=== PATIENT | male | born 1950 | race Caucasian/White ===

== ENCOUNTER 2018-06-24 15:27 | Inpatient (IN) | payer MEDICARE, OTHER, BC | END 2018-06-26 16:30 | disposition home or self-care (01) | LOC: ER 15:27 → ED HOLD 22:20 → ORTHO 4S 23:15 | DX: L03.115 Cellulitis of right lower limb (principal); G70.01 Myasthenia gravis with (acute) exacerbation; I50.32 Chronic diastolic (congestive) heart failure; I48.91 Unspecified atrial fibrillation ==

== ENCOUNTER 2019-02-08 07:48 | Day surgery (SDC) | payer MEDICARE, OTHER ==
[~2019-02-08] VITALS: Ht 180.3 cm; Wt 176.6 kg
[~2019-02-08 07:48] MED LIST: ALLO100T PO; APIX5TAB3 PO; CARV-49 PO; CEPH500C5 PO; FURO-149 PO; MYCO250C PO; POT25TAB5 PO; QUIN20TA18 PO
[2019-02-08 08:30] VITALS: BP 107/74
[2019-02-08] MEDS ORDERED: ALLO100T PO (08:33)
[2019-02-08] MEDS ORDERED: PRED5TAB PO (08:33)
[2019-02-08] MEDS ORDERED: NITR0.4T51 SL (08:33)
[2019-02-08] MEDS ORDERED: CARV12.5 PO (08:33)
[2019-02-08] MEDS ORDERED: TORS100T15 PO (08:33)
[2019-02-08] MEDS ORDERED: normal saline 1000ml 1,000 ML IV SCH (09:15)
[2019-02-08] MEDS ORDERED: fentaNYL/PF 50MCG/1 ML 2ML syringe IV ONE (09:15)
[2019-02-08] MEDS ORDERED: MIDAZolam 5mg/ml 2ml vial IV ONE (09:15)
--- NOTE | 2019-02-08 09:30 | NUR ---
Dr. Trejo in to do procedure. OLENA cancelled and Heart Echo done instead. Pt to be discharged post echo study. Addendum: 02/08/19 at 1455 by Ander Portillo RN Amended: Links added.
== END 2019-02-08 10:40 | disposition home or self-care (01) ==
LOC: SSTAY O 07:48 → EDSTATUS 09:30 → SSTAY O 10:40
PROVIDERS: ATTEND Internal Medicine Cardiovascular Disease
DX: R06.02 Shortness of breath (principal); I42.9 Cardiomyopathy, unspecified; I34.0 Nonrheumatic mitral (valve) insufficiency; I50.9 Heart failure, unspecified; I27.20 Pulmonary hypertension, unspecified; G47.33 Obstructive sleep apnea (adult) (pediatric); I48.91 Unspecified atrial fibrillation
CPT/HCPCS: 93306; J2250; J3010; J7030

== ENCOUNTER 2020-02-17 09:00 | Day surgery (SDC) | payer MEDICARE, OTHER ==
[~2020-02-17 09:00] MED LIST changes: -CARV-49 PO; +CARV12.5 PO; -CEPH500C5 PO; -FURO-149 PO; +NITR0.4T51 SL; +PRED5TAB PO; +TORS100T15 PO
[2020-02-17] MEDS ORDERED: LIDOcaine 2% 5ml jelly ONE (09:57)
== END 2020-02-17 11:00 | disposition home or self-care (01) ==
LOC: WOUND CARE 09:00
PROVIDERS: ATTEND Nurse Practitioner Family
DX: T81.89XD Other complications of procedures, not elsewhere classified, subsequent encounter (principal); E11.622 Type 2 diabetes mellitus with other skin ulcer; I83.228 Varicose veins of left lower extremity with both ulcer of other part of lower extremity and inflammation; L97.821 Non-pressure chronic ulcer of other part of left lower leg limited to breakdown of skin; I83.012 Varicose veins of right lower extremity with ulcer of calf; L97.211 Non-pressure chronic ulcer of right calf limited to breakdown of skin; E11.65 Type 2 diabetes mellitus with hyperglycemia; M10.9 Gout, unspecified; I10 Essential (primary) hypertension; B35.1 Tinea unguium; Z98.49 Cataract extraction status, unspecified eye; Y83.8 Other surgical procedures as the cause of abnormal reaction of the patient, or of later complication, without mention of misadventure at the time of the procedure
CPT/HCPCS: 36416; 87070; 87075; 87077; 87102; 87186; 97597

== ENCOUNTER 2020-02-20 09:45 | Day surgery (SDC) | payer MEDICARE, OTHER ==
[2020-02-20] MEDS ORDERED: LIDOcaine 2% 5ml jelly ONE (12:08)
== END 2020-02-20 13:12 | disposition home or self-care (01) ==
LOC: WOUND CARE 09:45
PROVIDERS: ATTEND Nurse Practitioner
DX: T81.89XD Other complications of procedures, not elsewhere classified, subsequent encounter (principal); E11.622 Type 2 diabetes mellitus with other skin ulcer; I83.12 Varicose veins of left lower extremity with inflammation; L97.821 Non-pressure chronic ulcer of other part of left lower leg limited to breakdown of skin; E11.65 Type 2 diabetes mellitus with hyperglycemia; M10.9 Gout, unspecified; I10 Essential (primary) hypertension; B35.1 Tinea unguium; Z98.49 Cataract extraction status, unspecified eye; Y83.8 Other surgical procedures as the cause of abnormal reaction of the patient, or of later complication, without mention of misadventure at the time of the procedure
CPT/HCPCS: 93970; 97597

== ENCOUNTER 2020-02-26 08:00 | Day surgery (SDC) | payer MEDICARE, OTHER ==
[2020-02-26] MEDS ORDERED: LIDOcaine 2% 5ml jelly ONE (08:44)
== END 2020-02-26 09:37 | disposition home or self-care (01) ==
LOC: WOUND CARE 08:00
PROVIDERS: ATTEND Nurse Practitioner
DX: T81.89XD Other complications of procedures, not elsewhere classified, subsequent encounter (principal); E11.622 Type 2 diabetes mellitus with other skin ulcer; I83.12 Varicose veins of left lower extremity with inflammation; L97.821 Non-pressure chronic ulcer of other part of left lower leg limited to breakdown of skin; E11.65 Type 2 diabetes mellitus with hyperglycemia; M10.9 Gout, unspecified; I10 Essential (primary) hypertension; B35.1 Tinea unguium; Z98.49 Cataract extraction status, unspecified eye; Y83.8 Other surgical procedures as the cause of abnormal reaction of the patient, or of later complication, without mention of misadventure at the time of the procedure
CPT/HCPCS: 97597

== ENCOUNTER 2020-03-05 07:45 | Day surgery (SDC) | payer MEDICARE, OTHER ==
[2020-03-05] MEDS ORDERED: LIDOcaine 2% 5ml jelly ONE (08:24)
== END 2020-03-05 08:59 | disposition home or self-care (01) ==
LOC: WOUND CARE 07:45
PROVIDERS: ATTEND Nurse Practitioner
DX: T81.89XD Other complications of procedures, not elsewhere classified, subsequent encounter (principal); E11.622 Type 2 diabetes mellitus with other skin ulcer; I83.228 Varicose veins of left lower extremity with both ulcer of other part of lower extremity and inflammation; L97.821 Non-pressure chronic ulcer of other part of left lower leg limited to breakdown of skin; I83.012 Varicose veins of right lower extremity with ulcer of calf; L97.211 Non-pressure chronic ulcer of right calf limited to breakdown of skin; E11.65 Type 2 diabetes mellitus with hyperglycemia; M10.9 Gout, unspecified; I10 Essential (primary) hypertension; B35.1 Tinea unguium; Z98.49 Cataract extraction status, unspecified eye; Y83.8 Other surgical procedures as the cause of abnormal reaction of the patient, or of later complication, without mention of misadventure at the time of the procedure
CPT/HCPCS: 97597

== ENCOUNTER 2020-03-12 07:52 | Outpatient (CLI) | payer MEDICARE, OTHER ==
[2020-03-12] MEDS ORDERED: LIDOcaine 2% 5ml jelly ONE (08:33)
== END 2020-03-12 08:45 | disposition home or self-care (01) ==
LOC: WOUND CARE 07:52 → EDSTATUS 08:00 → WOUND CARE 08:45
PROVIDERS: ATTEND Nurse Practitioner
DX: T81.89XD Other complications of procedures, not elsewhere classified, subsequent encounter (principal); E11.622 Type 2 diabetes mellitus with other skin ulcer; I83.228 Varicose veins of left lower extremity with both ulcer of other part of lower extremity and inflammation; L97.821 Non-pressure chronic ulcer of other part of left lower leg limited to breakdown of skin; I83.012 Varicose veins of right lower extremity with ulcer of calf; L97.211 Non-pressure chronic ulcer of right calf limited to breakdown of skin; E11.65 Type 2 diabetes mellitus with hyperglycemia; M10.9 Gout, unspecified; I10 Essential (primary) hypertension; B35.1 Tinea unguium; Z98.49 Cataract extraction status, unspecified eye; Y83.8 Other surgical procedures as the cause of abnormal reaction of the patient, or of later complication, without mention of misadventure at the time of the procedure
CPT/HCPCS: 97597

== ENCOUNTER 2020-03-19 07:56 | Outpatient (CLI) | payer MEDICARE, OTHER ==
[2020-03-19] MEDS ORDERED: LIDOcaine 2% 5ml jelly ONE (08:18)
[2020-03-19] MEDS ORDERED: LIDOcaine 1%/PF 5ML 10 MG/ML VIAL ONE (08:51)
== END 2020-03-19 23:59 | disposition home or self-care (01) ==
LOC: WOUND CARE 07:56 → EDSTATUS 08:20 → WOUND CARE 23:59
PROVIDERS: ATTEND Nurse Practitioner
DX: T81.89XD Other complications of procedures, not elsewhere classified, subsequent encounter (principal); E11.622 Type 2 diabetes mellitus with other skin ulcer; I83.228 Varicose veins of left lower extremity with both ulcer of other part of lower extremity and inflammation; L97.821 Non-pressure chronic ulcer of other part of left lower leg limited to breakdown of skin; I83.012 Varicose veins of right lower extremity with ulcer of calf; L97.212 Non-pressure chronic ulcer of right calf with fat layer exposed; E66.01 Morbid (severe) obesity due to excess calories; E11.65 Type 2 diabetes mellitus with hyperglycemia; M10.9 Gout, unspecified; I10 Essential (primary) hypertension; B35.1 Tinea unguium; Z98.49 Cataract extraction status, unspecified eye; Z68.43 Body mass index [BMI] 50.0-59.9, adult; Y83.8 Other surgical procedures as the cause of abnormal reaction of the patient, or of later complication, without mention of misadventure at the time of the procedure
CPT/HCPCS: 11042

== ENCOUNTER 2020-03-26 07:33 | Outpatient (CLI) | payer MEDICARE, OTHER ==
[2020-03-26] MEDS ORDERED: LIDOcaine 2% 5ml jelly ONE (08:17)
[2020-03-26] MEDS ORDERED: LIDOcaine 1%/PF 5ML 10 MG/ML VIAL ONE (08:45)
== END 2020-03-26 23:59 | disposition home or self-care (01) ==
LOC: WOUND CARE 07:33
PROVIDERS: ATTEND Nurse Practitioner
DX: T81.89XD Other complications of procedures, not elsewhere classified, subsequent encounter (principal); E11.622 Type 2 diabetes mellitus with other skin ulcer; I83.228 Varicose veins of left lower extremity with both ulcer of other part of lower extremity and inflammation; L97.822 Non-pressure chronic ulcer of other part of left lower leg with fat layer exposed; I83.012 Varicose veins of right lower extremity with ulcer of calf; L97.212 Non-pressure chronic ulcer of right calf with fat layer exposed; E66.01 Morbid (severe) obesity due to excess calories; E11.65 Type 2 diabetes mellitus with hyperglycemia; M10.9 Gout, unspecified; I10 Essential (primary) hypertension; B35.1 Tinea unguium; Z98.49 Cataract extraction status, unspecified eye; Z85.828 Personal history of other malignant neoplasm of skin; Z68.43 Body mass index [BMI] 50.0-59.9, adult; Y83.8 Other surgical procedures as the cause of abnormal reaction of the patient, or of later complication, without mention of misadventure at the time of the procedure
CPT/HCPCS: 11042

== ENCOUNTER 2020-04-06 08:45 | Outpatient (CLI) | payer MEDICARE, OTHER ==
[2020-04-06] MEDS ORDERED: LIDOcaine 2% 5ml jelly ONE (09:03)
== END 2020-04-06 23:59 | disposition home or self-care (01) ==
LOC: WOUND CARE 08:45
PROVIDERS: ATTEND Nurse Practitioner
DX: T81.89XD Other complications of procedures, not elsewhere classified, subsequent encounter (principal); E11.622 Type 2 diabetes mellitus with other skin ulcer; I83.228 Varicose veins of left lower extremity with both ulcer of other part of lower extremity and inflammation; L97.822 Non-pressure chronic ulcer of other part of left lower leg with fat layer exposed; I83.012 Varicose veins of right lower extremity with ulcer of calf; L97.211 Non-pressure chronic ulcer of right calf limited to breakdown of skin; E66.01 Morbid (severe) obesity due to excess calories; E11.65 Type 2 diabetes mellitus with hyperglycemia; M10.9 Gout, unspecified; I10 Essential (primary) hypertension; B35.1 Tinea unguium; Z98.49 Cataract extraction status, unspecified eye; Z85.828 Personal history of other malignant neoplasm of skin; Z68.43 Body mass index [BMI] 50.0-59.9, adult; Y83.8 Other surgical procedures as the cause of abnormal reaction of the patient, or of later complication, without mention of misadventure at the time of the procedure; E11.36 Type 2 diabetes mellitus with diabetic cataract
CPT/HCPCS: 97597

== ENCOUNTER 2020-04-13 08:26 | Outpatient (CLI) | payer MEDICARE, OTHER ==
[2020-04-13] MEDS ORDERED: LIDOcaine 2% 5ml jelly ONE (09:11)
== END 2020-04-13 23:59 | disposition home or self-care (01) ==
LOC: WOUND CARE 08:26 → EDSTATUS 09:00 → WOUND CARE 23:59
PROVIDERS: ATTEND Nurse Practitioner Family
DX: T81.89XD Other complications of procedures, not elsewhere classified, subsequent encounter (principal); E11.622 Type 2 diabetes mellitus with other skin ulcer; I83.228 Varicose veins of left lower extremity with both ulcer of other part of lower extremity and inflammation; L97.821 Non-pressure chronic ulcer of other part of left lower leg limited to breakdown of skin; I83.012 Varicose veins of right lower extremity with ulcer of calf; L97.211 Non-pressure chronic ulcer of right calf limited to breakdown of skin; E66.01 Morbid (severe) obesity due to excess calories; E11.65 Type 2 diabetes mellitus with hyperglycemia; E11.36 Type 2 diabetes mellitus with diabetic cataract; M10.9 Gout, unspecified; I10 Essential (primary) hypertension; B35.1 Tinea unguium; Z98.49 Cataract extraction status, unspecified eye; Z85.828 Personal history of other malignant neoplasm of skin; Z68.43 Body mass index [BMI] 50.0-59.9, adult; Y83.8 Other surgical procedures as the cause of abnormal reaction of the patient, or of later complication, without mention of misadventure at the time of the procedure
CPT/HCPCS: 97597

== ENCOUNTER 2020-04-20 08:55 | Outpatient (CLI) | payer MEDICARE, OTHER ==
[2020-04-20] MEDS ORDERED: LIDOcaine 2% 5ml jelly ONE (09:32)
== END 2020-04-20 23:59 | disposition home or self-care (01) ==
LOC: WOUND CARE 08:55
PROVIDERS: ATTEND Nurse Practitioner Family
DX: T81.89XD Other complications of procedures, not elsewhere classified, subsequent encounter (principal); E11.622 Type 2 diabetes mellitus with other skin ulcer; I83.228 Varicose veins of left lower extremity with both ulcer of other part of lower extremity and inflammation; L97.821 Non-pressure chronic ulcer of other part of left lower leg limited to breakdown of skin; I83.012 Varicose veins of right lower extremity with ulcer of calf; L97.211 Non-pressure chronic ulcer of right calf limited to breakdown of skin; E66.01 Morbid (severe) obesity due to excess calories; E11.65 Type 2 diabetes mellitus with hyperglycemia; E11.36 Type 2 diabetes mellitus with diabetic cataract; M10.9 Gout, unspecified; I10 Essential (primary) hypertension; B35.1 Tinea unguium; Z98.49 Cataract extraction status, unspecified eye; Z85.828 Personal history of other malignant neoplasm of skin; Z68.43 Body mass index [BMI] 50.0-59.9, adult; Y83.8 Other surgical procedures as the cause of abnormal reaction of the patient, or of later complication, without mention of misadventure at the time of the procedure
CPT/HCPCS: 97597

== ENCOUNTER 2020-04-27 08:47 | Outpatient (CLI) | payer MEDICARE, OTHER ==
[2020-04-27] MEDS ORDERED: LIDOcaine 2% 5ml jelly ONE (09:18)
== END 2020-04-27 23:59 | disposition home or self-care (01) ==
LOC: WOUND CARE 08:47 → EDSTATUS 09:00 → WOUND CARE 23:59
PROVIDERS: ATTEND Nurse Practitioner Family
DX: T81.89XD Other complications of procedures, not elsewhere classified, subsequent encounter (principal); E11.622 Type 2 diabetes mellitus with other skin ulcer; I83.228 Varicose veins of left lower extremity with both ulcer of other part of lower extremity and inflammation; L97.821 Non-pressure chronic ulcer of other part of left lower leg limited to breakdown of skin; I83.012 Varicose veins of right lower extremity with ulcer of calf; L97.211 Non-pressure chronic ulcer of right calf limited to breakdown of skin; E66.01 Morbid (severe) obesity due to excess calories; E11.65 Type 2 diabetes mellitus with hyperglycemia; E11.36 Type 2 diabetes mellitus with diabetic cataract; M10.9 Gout, unspecified; I10 Essential (primary) hypertension; B35.1 Tinea unguium; Z98.49 Cataract extraction status, unspecified eye; Z85.828 Personal history of other malignant neoplasm of skin; Z68.43 Body mass index [BMI] 50.0-59.9, adult; Y83.8 Other surgical procedures as the cause of abnormal reaction of the patient, or of later complication, without mention of misadventure at the time of the procedure
CPT/HCPCS: 97597

== ENCOUNTER 2020-05-04 08:57 | Outpatient (CLI) | payer MEDICARE, OTHER ==
[2020-05-04] MEDS ORDERED: LIDOcaine 2% 5ml jelly ONE (09:26)
== END 2020-05-04 23:59 | disposition home or self-care (01) ==
LOC: WOUND CARE 08:57
PROVIDERS: ATTEND Nurse Practitioner Family
DX: T81.89XD Other complications of procedures, not elsewhere classified, subsequent encounter (principal); E11.622 Type 2 diabetes mellitus with other skin ulcer; I83.228 Varicose veins of left lower extremity with both ulcer of other part of lower extremity and inflammation; L97.821 Non-pressure chronic ulcer of other part of left lower leg limited to breakdown of skin; I83.012 Varicose veins of right lower extremity with ulcer of calf; L97.211 Non-pressure chronic ulcer of right calf limited to breakdown of skin; E66.01 Morbid (severe) obesity due to excess calories; E11.65 Type 2 diabetes mellitus with hyperglycemia; E11.36 Type 2 diabetes mellitus with diabetic cataract; M10.9 Gout, unspecified; I10 Essential (primary) hypertension; B35.1 Tinea unguium; Z98.49 Cataract extraction status, unspecified eye; Z85.828 Personal history of other malignant neoplasm of skin; Z68.43 Body mass index [BMI] 50.0-59.9, adult; Y83.8 Other surgical procedures as the cause of abnormal reaction of the patient, or of later complication, without mention of misadventure at the time of the procedure
CPT/HCPCS: 97597

== ENCOUNTER 2020-05-13 08:38 | Outpatient (CLI) | payer MEDICARE, OTHER ==
[2020-05-13] MEDS ORDERED: LIDOcaine 2% 5ml jelly ONE (09:02)
== END 2020-05-13 23:59 | disposition home or self-care (01) ==
LOC: WOUND CARE 08:38
PROVIDERS: ATTEND Nurse Practitioner
DX: T81.89XD Other complications of procedures, not elsewhere classified, subsequent encounter (principal); E11.622 Type 2 diabetes mellitus with other skin ulcer; I83.228 Varicose veins of left lower extremity with both ulcer of other part of lower extremity and inflammation; L97.821 Non-pressure chronic ulcer of other part of left lower leg limited to breakdown of skin; I83.012 Varicose veins of right lower extremity with ulcer of calf; L97.211 Non-pressure chronic ulcer of right calf limited to breakdown of skin; E66.01 Morbid (severe) obesity due to excess calories; E11.65 Type 2 diabetes mellitus with hyperglycemia; E11.36 Type 2 diabetes mellitus with diabetic cataract; M10.9 Gout, unspecified; I10 Essential (primary) hypertension; B35.1 Tinea unguium; Z98.49 Cataract extraction status, unspecified eye; Z85.828 Personal history of other malignant neoplasm of skin; Z68.43 Body mass index [BMI] 50.0-59.9, adult; Y83.8 Other surgical procedures as the cause of abnormal reaction of the patient, or of later complication, without mention of misadventure at the time of the procedure
CPT/HCPCS: 97597

== ENCOUNTER 2020-05-20 08:40 | Outpatient (CLI) | payer MEDICARE, OTHER | END 2020-05-20 23:59 | disposition home or self-care (01) | LOC: WOUND CARE 08:40 | PROVIDERS: ATTEND Nurse Practitioner | DX: T81.89XD Other complications of procedures, not elsewhere classified, subsequent encounter (principal); E11.622 Type 2 diabetes mellitus with other skin ulcer; I83.228 Varicose veins of left lower extremity with both ulcer of other part of lower extremity and inflammation; L97.821 Non-pressure chronic ulcer of other part of left lower leg limited to breakdown of skin; I83.012 Varicose veins of right lower extremity with ulcer of calf; L97.211 Non-pressure chronic ulcer of right calf limited to breakdown of skin; E66.01 Morbid (severe) obesity due to excess calories; E11.65 Type 2 diabetes mellitus with hyperglycemia; E11.36 Type 2 diabetes mellitus with diabetic cataract; M10.9 Gout, unspecified; I10 Essential (primary) hypertension; B35.1 Tinea unguium; Z98.49 Cataract extraction status, unspecified eye; Z85.828 Personal history of other malignant neoplasm of skin; Z68.43 Body mass index [BMI] 50.0-59.9, adult; Y83.8 Other surgical procedures as the cause of abnormal reaction of the patient, or of later complication, without mention of misadventure at the time of the procedure | CPT/HCPCS: G0463 ==

== ENCOUNTER 2020-07-27 07:19 | Day surgery (SDC) | payer MEDICARE ==
[2020-07-27] VITALS (13 sets, daily range): BP systolic 82–140; BP diastolic 35–71
[~2020-07-27] VITALS: Ht 180.3 cm; Wt 176.1 kg
[2020-07-27] MEDS ORDERED: HYDR25TA5 PO (08:00)
[2020-07-27] MEDS ORDERED: MV-M1TAB32 (08:00)
[2020-07-27] MEDS ORDERED: normal saline 1000ml 1,000 ML IV SCH (08:10)
[2020-07-27] MEDS ORDERED: glycopyrrolate 0.2mg/ml inj IV ONE (08:10)
[2020-07-27] MEDS ORDERED: MIDAZolam 1mg/ml 10ml vial IV ONE (08:10)
[2020-07-27] MEDS ORDERED: fentaNYL/PF 50MCG/1 ML 2ML syringe IV ONE (08:10)
[2020-07-27 08:34] LABS: BASOPHILS # (AUTO) 0.1 X10'3 (0-0.2); BASOPHILS % (AUTO) 0.9 % (0-1); EOSINOPHILS # (AUTO) 0.4 X10'3 (0-0.9); EOSINOPHILS % (AUTO) 4.7 % (0-6); HEMATOCRIT 42.1 % (42.0-52.0); HEMOGLOBIN 13.8 g/dl (14.0-17.9); LYMPHOCYTES % (AUTO) 23.5 % (21-51); MEAN CORPUSCULAR HEMOGLOBIN 30.5 PG (27.0-31.0); MEAN CORPUSCULAR HGB CONC 32.8 g/dL (33.0-36.5); MEAN PLATELET VOLUME 11.2 FL (7.4-10.4); MONOCYTES # (AUTO) 0.8 X10'3 (0-0.9); MONOCYTES % (AUTO) 9.7 % (2-12); NEUTROPHILS # (AUTO) 5.2 X10'3 (1.8-7.7); NEUTROPHILS % (AUTO) 61.2 % (42-75); PLATELET COUNT 206 X10'3 (140-440); RED BLOOD COUNT 4.53 X10'6 (4.70-6.10); RED CELL DISTRIBUTION WIDTH 15.7 % (11.5-14.5); WHITE BLOOD COUNT 8.5 X10'3 (4.5-11.0)
[2020-07-27 08:40] LABS: ALBUMIN 3.6 G/DL (3.4-5.0); ANION GAP 9 (8-16); BLOOD UREA NITROGEN 31 MG/DL (7-18); BUN/CREATININE RATIO 22.5 (5.4-32.0); CALCIUM 9.4 MG/DL (8.5-10.1); CHLORIDE 103 MMOL/L (99-107); CREATININE 1.38 MG/DL (0.60-1.10); GLUCOSE 95 MG/DL (70-104); MAGNESIUM 2.5 MG/DL (1.5-2.4); SODIUM 143 MMOL/L (135-145); TOTAL CARBON DIOXIDE 31.5 MMOL/L (24-32); eGFR 51 ML/MIN
== END 2020-07-27 10:30 | disposition home or self-care (01) ==
LOC: SSTAY O 07:19
PROVIDERS: ATTEND Internal Medicine Cardiovascular Disease
DX: I48.19 Other persistent atrial fibrillation (principal); K21.9 Gastro-esophageal reflux disease without esophagitis; I11.0 Hypertensive heart disease with heart failure; I50.9 Heart failure, unspecified; I08.1 Rheumatic disorders of both mitral and tricuspid valves; E66.9 Obesity, unspecified; Z68.43 Body mass index [BMI] 50.0-59.9, adult; Z79.01 Long term (current) use of anticoagulants; Z88.5 Allergy status to narcotic agent; Z98.890 Other specified postprocedural states; Z79.899 Other long term (current) drug therapy
CPT/HCPCS: 36415; 80048; 83735; 85025; 85610; 92960; 93005; 93312; 93325; J2250; J3010; J7030; J3490

== ENCOUNTER 2021-12-31 22:58 | Inpatient (IN) | payer MEDICARE ==
[~2021-12-31] VITALS: Ht 175.3 cm; Wt 184.5 kg
[~2021-12-31 22:58] MED LIST changes: +HYDR25TA5 PO; +MV-M1TAB32; -PRED5TAB PO; -QUIN20TA18 PO; +QUIN20TA39 PO
[2021-12-31] MEDS ORDERED: CefTRIAXone 2gm/D5W 50ml BAG 50 ML IV ONE (23:35)
[2021-12-31] MEDS ORDERED: ringers solution, lacted 1,000 ML IV ONE (23:35)
[2021-12-31] MEDS ORDERED: aspirin 81mg tab.chew PO ONE (23:35)
[2022-01-01 00:08] LABS: BASOPHILS % (AUTO) 0.2 % (0-1); EOSINOPHILS % (AUTO) 0 % (0-6); HEMATOCRIT 38.7 % (42.0-52.0); HEMOGLOBIN 12.6 g/dl (14.0-17.9); LYMPHOCYTES # (AUTO) 0.4 X10'3 (1.1-4.8); MEAN CORPUSCULAR HEMOGLOBIN 30.1 PG (27.0-31.0); MEAN CORPUSCULAR HGB CONC 32.6 g/dL (33.0-36.5); MEAN CORPUSCULAR VOLUME 92.3 FL (78-98); MEAN PLATELET VOLUME 10.6 FL (7.4-10.4); MONOCYTES # (AUTO) 0.6 X10'3 (0-0.9); MONOCYTES % (AUTO) 2.8 % (2-12); NEUTROPHILS # (AUTO) 20.7 X10'3 (1.8-7.7); PLATELET COUNT 155 X10'3 (140-440); RED CELL DISTRIBUTION WIDTH 15.9 % (11.5-14.5); WHITE BLOOD COUNT 21.8 X10'3 (4.5-11.0)
--- NOTE | 2022-01-01 00:22 | NUR ---
RELIEVING RN FOR BREAK, ATTEMPTED IV X2, NO SUCCESS, ANOTHER RN TO TRY, WAS ABLE TO DRAW 2ND SET OF BLOOD CX
[2022-01-01 00:34] LABS: ALANINE AMINOTRANSFERASE 11 U/L (12-78); ALBUMIN 3.3 G/DL (3.4-5.0); ALBUMIN/GLOBULIN RATIO 0.7 (1.1-1.5); ALKALINE PHOSPHATASE 56 IU/L (46-116); ANION GAP 12 (8-16); ASPARTATE AMINO TRANSFERASE 20 U/L (10-37); BILIRUBIN,TOTAL 1.4 MG/DL (0.1-1.0); BLOOD UREA NITROGEN 67 MG/DL (7-18); BUN/CREATININE RATIO 17.1 (5.4-32.0); CALCIUM 9.1 MG/DL (8.5-10.1); CHLORIDE 95 MMOL/L (99-107); CREATININE 3.91 MG/DL (0.60-1.10); GLUCOSE 104 MG/DL (70-104); POTASSIUM 4.6 MMOL/L (3.5-5.1); SODIUM 136 MMOL/L (135-145); TOTAL CARBON DIOXIDE 29.2 MMOL/L (24-32); TOTAL PROTEIN 7.9 G/DL (6.4-8.2); eGFR 15 ML/MIN
[2022-01-01 00:42] LABS: MAGNESIUM 2.3 MG/DL (1.5-2.4)
[2022-01-01] MEDS ORDERED: normal saline 1000ml 1,000 ML IV ONE (01:05)
[2022-01-01] MEDS ORDERED: normal saline 1000ML IV soln IVB ONE (01:20)
[2022-01-01] MEDS ORDERED: acetaminophen 650mg rectal suppository RC PRN (02:00)
[2022-01-01] MEDS: normal saline 1000ml 1,000 ML IV SCH (02:00)
[2022-01-01] MEDS ORDERED: magnesium hydroxide 30ml (MOM) UD suspension PO PRN (02:00)
[2022-01-01] MEDS ORDERED: diphenhydrAMINE 50 mg/ml inj IV PRN (02:00)
[2022-01-01] MEDS ORDERED: bisacodyl 10mg suppository rectal RC PRN (02:00)
[2022-01-01] MEDS ORDERED: morphine 2 MG/ML inj. syringe IV PRN ×2 (02:00)
[2022-01-01] MEDS ORDERED: HYDROmorphone inj. 0.5 MG/0.5 ML DISP.SYRIN IV PRN (02:00)
[2022-01-01] MEDS ORDERED: diphenhydrAMINE 25mg capsule PO PRN (02:00)
[2022-01-01] MEDS ORDERED: HYDROcodone/acetaminophen 10/325mg tab PO PRN (02:00)
[2022-01-01] MEDS ORDERED: acetaminophen 325mg tablet PO PRN ×2 (02:00)
[2022-01-01] MEDS ORDERED: HYDROcodone/acetaminophen 5mg/325mg tablet PO PRN (02:00)
[2022-01-01] MEDS ORDERED: ondansetron 4mg rapidly disintigrating tab PO PRN (02:00)
[2022-01-01 02:23] LABS: TOTAL CELLS COUNTED 100
[2022-01-01 02:24] LABS: PLATELET ESTIMATE NORMAL
[2022-01-01 02:25] LABS: LARGE PLATELETS FEW
[2022-01-01] MEDS ORDERED: vancomycin/NS 1 GM ADD-VANTAGE 250 ML IV SCH ×2 (02:27→03:40)
[2022-01-01 02:40] LABS: HEMOGLOBIN A1C 6.2 % (4.5-6.2)
[2022-01-01 02:43] LABS: CREATINE KINASE 37 U/L (39-308); LIPASE 315 U/L (73-393)
[2022-01-01 02:48] LABS: PHOSPHORUS 3.7 MG/DL (2.3-4.5)
[2022-01-01 02:56] LABS: APTT 36 SECONDS (22-32); D-DIMER 0.88 MG/L FEU (0-0.50)
[2022-01-01] MEDS: ondansetron/PF 4mg/2ml inj IV PRN ×2 (05:01→16:41)
--- NOTE | 2022-01-01 07:17 | NUR ---
Assumed care of this 71yr male patient @ 0630a, awake, alert and orientedx4. In no form of distress. EAGLE. VSS. Safety maintained. Daughter at bedside. Monitoring ongoing
[2022-01-01] MEDS ORDERED: docusate sod 100mg capsule PO SCH (08:00)
[2022-01-01] MEDS ORDERED: furosemide 20 MG/2 ML vial IV SCH (08:00)
[2022-01-01] MEDS ORDERED: aspirin 81mg, enteric-coated 1 TAB TABLET.DR PO SCH (08:00)
[2022-01-01] MEDS: pantoprazole 40mg Tablet.DR PO SCH (08:06)
[2022-01-01] MEDS: piperacillin/tazo 3.375gm/50ml 50 ML IV SCH ×2 (08:06→22:28)
--- NOTE | 2022-01-01 08:22 | NUR ---
PT HAS LOTS OF ARRHTYMIAS ON THE MONITOR. LAST CHEM LOOKS UNREMARKABLE. INFORMED MD OHLFS ABOUT ARRHYTHMIA AND POSSIBLY REPEAT LABS
--- NOTE | 2022-01-01 09:50 | NUR ---
JULIA [phone]
[2022-01-01 10:05] LABS: ALANINE AMINOTRANSFERASE 12 U/L (12-78); ALBUMIN 2.8 G/DL (3.4-5.0); ALBUMIN/GLOBULIN RATIO 0.6 (1.1-1.5); ALKALINE PHOSPHATASE 55 IU/L (46-116); ANION GAP 7 (8-16); ASPARTATE AMINO TRANSFERASE 16 U/L (10-37); BILIRUBIN,TOTAL 1.2 MG/DL (0.1-1.0); BLOOD UREA NITROGEN 71 MG/DL (7-18); BUN/CREATININE RATIO 19.6 (5.4-32.0); CALCIUM 8.7 MG/DL (8.5-10.1); CHLORIDE 97 MMOL/L (99-107); CREATININE 3.62 MG/DL (0.60-1.10); GLUCOSE 118 MG/DL (70-104); POTASSIUM 4.6 MMOL/L (3.5-5.1); SODIUM 135 MMOL/L (135-145); TOTAL CARBON DIOXIDE 30.8 MMOL/L (24-32); TOTAL PROTEIN 7.4 G/DL (6.4-8.2); eGFR 17 ML/MIN
[2022-01-01 12:48] LABS: BASOPHILS % (AUTO) 0.1 % (0-1); EOSINOPHILS % (AUTO) 0 % (0-6); HEMATOCRIT 36.1 % (42.0-52.0); HEMOGLOBIN 11.8 g/dl (14.0-17.9); LYMPHOCYTES # (AUTO) 0.4 X10'3 (1.1-4.8); LYMPHOCYTES % (AUTO) 2.1 % (21-51); MEAN CORPUSCULAR HEMOGLOBIN 30.1 PG (27.0-31.0); MEAN CORPUSCULAR HGB CONC 32.7 g/dL (33.0-36.5); MEAN PLATELET VOLUME 10.8 FL (7.4-10.4); MONOCYTES # (AUTO) 0.7 X10'3 (0-0.9); MONOCYTES % (AUTO) 3.5 % (2-12); NEUTROPHILS # (AUTO) 18.6 X10'3 (1.8-7.7); NEUTROPHILS % (AUTO) 94.3 % (42-75); PLATELET COUNT 137 X10'3 (140-440); RED BLOOD COUNT 3.92 X10'6 (4.70-6.10); RED CELL DISTRIBUTION WIDTH 15.8 % (11.5-14.5); WHITE BLOOD COUNT 19.7 X10'3 (4.5-11.0)
--- NOTE | 2022-01-01 13:00 | NUR ---
Patient in room PCU 3022. I have received report from Craig LOMAS and had the opportunity to ask questions and assume patient care.
[2022-01-01 13:39] LABS: LARGE PLATELETS FEW; PLATELET ESTIMATE DECREASED
[2022-01-01 13:40] LABS: ELLIPTOCYTES FEW; STOMATOCYTES FEW
[2022-01-01 18:00] VITALS: BP 102/30
--- NOTE | 2022-01-01 18:10 | NUR ---
Patient in room PCU 3022. I have received report from Yunior LOMAS and had the opportunity to ask questions and assume patient care.
--- NOTE | 2022-01-01 18:26 | NUR ---
Problems reprioritized. Patient report given, questions answered & plan of care reviewed with Sophy GARNER.
[2022-01-01] MEDS ORDERED: ALLO300T8 PO (19:00)
[2022-01-01] MEDS ORDERED: POTA8TAB69 PO (19:00)
[2022-01-01] MEDS ORDERED: CARV25TA2 PO (19:00)
[2022-01-01] MEDS ORDERED: PYRI60TA PO (19:00)
[2022-01-01 22:00] VITALS: BP 96/52
[2022-01-01] MEDS ORDERED: LIDOcaine 2 gm/250ml D5W 250 ML IV SCH (22:20)
[2022-01-02] VITALS (7 sets, daily range): BP systolic 81–121; BP diastolic 39–81
[2022-01-02] MEDS: mag hydrox/Alum hydrox/simeth 30ml oral suspension PO PRN ×2 (00:37→16:51)
[2022-01-02] MEDS ORDERED: LIDOcaine 2% (20 mg/ml) 5ml cardiac syringe IV STA ×2 (02:08→04:59)
[2022-01-02] MEDS: DOBUTamine-DoBUTrex 500mg/D5W 250 ML IV SCH ×2 (04:23→14:44)
[2022-01-02] MEDS: vancomycin inj 500 MG in normal saline 100ml IV soln 100 ML IV SCH (05:10)
--- NOTE | 2022-01-02 06:47 | NUR ---
Patient in room PCU 3022. I have received report from Sophy LOMAS and had the opportunity to ask questions and assume patient care.
[2022-01-02 07:36] LABS: BASOPHILS % (AUTO) 0.3 % (0-1); EOSINOPHILS % (AUTO) 0 % (0-6); HEMATOCRIT 37.1 % (42.0-52.0); LYMPHOCYTES # (AUTO) 0.5 X10'3 (1.1-4.8); LYMPHOCYTES % (AUTO) 3.5 % (21-51); MEAN CORPUSCULAR HEMOGLOBIN 29.9 PG (27.0-31.0); MEAN CORPUSCULAR HGB CONC 32.2 g/dL (33.0-36.5); MEAN CORPUSCULAR VOLUME 92.8 FL (78-98); MEAN PLATELET VOLUME 10.9 FL (7.4-10.4); MONOCYTES # (AUTO) 0.7 X10'3 (0-0.9); MONOCYTES % (AUTO) 4.8 % (2-12); NEUTROPHILS # (AUTO) 13.1 X10'3 (1.8-7.7); NEUTROPHILS % (AUTO) 91.4 % (42-75); PLATELET COUNT 134 X10'3 (140-440); RED CELL DISTRIBUTION WIDTH 16.1 % (11.5-14.5); WHITE BLOOD COUNT 14.3 X10'3 (4.5-11.0)
[2022-01-02 07:43] LABS: ALANINE AMINOTRANSFERASE 14 U/L (12-78); ALBUMIN 2.6 G/DL (3.4-5.0); ALBUMIN/GLOBULIN RATIO 0.6 (1.1-1.5); ALKALINE PHOSPHATASE 88 IU/L (46-116); ANION GAP 11 (8-16); ASPARTATE AMINO TRANSFERASE 30 U/L (10-37); BILIRUBIN,TOTAL 0.9 MG/DL (0.1-1.0); BLOOD UREA NITROGEN 84 MG/DL (7-18); BUN/CREATININE RATIO 22.8 (5.4-32.0); CALCIUM 8.6 MG/DL (8.5-10.1); CHLORIDE 94 MMOL/L (99-107); CHOL/HDL RATIO 2.4 (0.00-4.99); CHOLESTEROL 100 MG/DL (0-200); CREATININE 3.68 MG/DL (0.60-1.10); GLUCOSE 113 MG/DL (70-104); HDL CHOLESTEROL 41 MG/DL (35-60); LDL CHOLESTEROL 37 MG/DL (50-100); POTASSIUM 4.5 MMOL/L (3.5-5.1); SODIUM 133 MMOL/L (135-145); TOTAL CARBON DIOXIDE 28.1 MMOL/L (24-32); TOTAL PROTEIN 7.3 G/DL (6.4-8.2); eGFR 16 ML/MIN
[2022-01-02 07:44] LABS: TRIGLYCERIDES 69 MG/DL (20-135)
[2022-01-02] MEDS: pyridostigmine br 60mg tablet PO SCH ×3 (08:00→21:46)
[2022-01-02] MEDS ORDERED: allopurinol 300 MG tablet PO SCH (08:00)
[2022-01-02] MEDS ORDERED: carVEDilol 12.5mg tablet PO SCH (08:00)
[2022-01-02] MEDS ORDERED: lisinopril 20mg tablet PO SCH ×2 (08:00→15:15)
--- NOTE | 2022-01-02 08:58 | NUR ---
V Tach run of 9 beats. PAGER ID: [phone] MESSAGE: [phone] David Malik 9 beat run of V Tach. @ [phone]
[2022-01-02] MEDS: furosemide 40mg/4ml inj IV SCH (09:07)
[2022-01-02] MEDS: apixaban 5mg tablet PO SCH ×2 (09:08→20:44)
[2022-01-02] MEDS: piperacillin/tazo 3.375gm/50ml 50 ML IV SCH (09:15)
[2022-01-02] MEDS: mycophenolate mofetil 250mg capsule PO SCH ×2 (09:15→20:44)
[2022-01-02] MEDS: pantoprazole 40mg Tablet.DR PO SCH (16:50)
--- NOTE | 2022-01-02 18:06 | NUR ---
18:05 2 beat run of V tach followed by a 6 beat run of V tach. Monitoring Pt. is asymptomatic.
--- NOTE | 2022-01-02 18:56 | NUR ---
Microbiology Report from [facility]. See paper Chart Strep: Gram Positive Chains. Clindamycin resistant.
[2022-01-02] MEDS: normal saline 1000ml 1,000 ML IV SCH (19:20)
[2022-01-02] MEDS: carVEDilol 12.5mg tablet PO SCH (20:00)
[2022-01-02] MEDS ORDERED: pyridostigmine br 60mg tablet PO SCH (21:35)
[2022-01-03] MEDS: normal saline 1000ml 1,000 ML IV SCH ×2 (00:16→21:02)
[2022-01-03 02:00] VITALS: BP 106/60
[2022-01-03] MEDS: vancomycin inj 500 MG in normal saline 100ml IV soln 100 ML IV SCH (04:34)
[2022-01-03 06:42] LABS: BASOPHILS % (AUTO) 0.1 % (0-1); EOSINOPHILS % (AUTO) 0.1 % (0-6); HEMATOCRIT 38.6 % (42.0-52.0); HEMOGLOBIN 12.3 g/dl (14.0-17.9); LYMPHOCYTES # (AUTO) 0.5 X10'3 (1.1-4.8); LYMPHOCYTES % (AUTO) 4.5 % (21-51); MEAN CORPUSCULAR HEMOGLOBIN 29.8 PG (27.0-31.0); MEAN CORPUSCULAR HGB CONC 31.9 g/dL (33.0-36.5); MEAN CORPUSCULAR VOLUME 93.1 FL (78-98); MEAN PLATELET VOLUME 10.5 FL (7.4-10.4); MONOCYTES % (AUTO) 8.1 % (2-12); NEUTROPHILS # (AUTO) 10.3 X10'3 (1.8-7.7); NEUTROPHILS % (AUTO) 87.2 % (42-75); PLATELET COUNT 126 X10'3 (140-440); RED BLOOD COUNT 4.14 X10'6 (4.70-6.10); WHITE BLOOD COUNT 11.8 X10'3 (4.5-11.0)
--- NOTE | 2022-01-03 06:55 | NUR ---
Patient in room PCU 3022. I have received report from Nemo LOMAS and had the opportunity to ask questions and assume patient care.
[2022-01-03 07:00] VITALS: BP 91/52
[2022-01-03 07:04] LABS: ALANINE AMINOTRANSFERASE 19 U/L (12-78); ALBUMIN 2.6 G/DL (3.4-5.0); ALBUMIN/GLOBULIN RATIO 0.6 (1.1-1.5); ALKALINE PHOSPHATASE 122 IU/L (46-116); ANION GAP 9 (8-16); ASPARTATE AMINO TRANSFERASE 27 U/L (10-37); BILIRUBIN,TOTAL 0.8 MG/DL (0.1-1.0); BLOOD UREA NITROGEN 93 MG/DL (7-18); BUN/CREATININE RATIO 24.5 (5.4-32.0); CALCIUM 8.8 MG/DL (8.5-10.1); CHLORIDE 95 MMOL/L (99-107); GLUCOSE 106 MG/DL (70-104); POTASSIUM 4.7 MMOL/L (3.5-5.1); SODIUM 134 MMOL/L (135-145); TOTAL CARBON DIOXIDE 29.6 MMOL/L (24-32); TOTAL PROTEIN 7.3 G/DL (6.4-8.2); eGFR 16 ML/MIN
[2022-01-03] MEDS: carVEDilol 12.5mg tablet PO SCH ×2 (08:00→20:00)
[2022-01-03] MEDS: pyridostigmine br 60mg tablet PO SCH ×3 (08:00→20:20)
[2022-01-03] MEDS: furosemide 40mg/4ml inj IV SCH (08:00)
[2022-01-03] MEDS: apixaban 5mg tablet PO SCH ×2 (08:52→20:19)
[2022-01-03] MEDS: pantoprazole 40mg Tablet.DR PO SCH (08:52)
[2022-01-03] MEDS: mycophenolate mofetil 250mg capsule PO SCH ×2 (08:52→20:19)
[2022-01-03] MEDS: mag hydrox/Alum hydrox/simeth 30ml oral suspension PO PRN ×2 (08:53→15:05)
[2022-01-03] MEDS: lisinopril 10 MG tablet PO SCH (10:29)
[2022-01-03 11:00] VITALS: BP 84/53
[2022-01-03 15:00] VITALS: BP 105/70
[2022-01-03 18:00] VITALS: BP 96/61
[2022-01-03] MEDS: diatr meglu/diatrizoate 30ml oral sol.-(3 dose) bottle PO SCH (21:59)
[2022-01-03 22:00] VITALS: BP 89/44
[2022-01-04] VITALS (7 sets, daily range): BP systolic 80–111; BP diastolic 40–60
[2022-01-04] MEDS ORDERED: VANCOMYCIN LEVEL IV ONE (03:30)
[2022-01-04 04:21] LABS: BASOPHILS % (AUTO) 0.3 % (0-1); EOSINOPHILS # (AUTO) 0.1 X10'3 (0-0.9); EOSINOPHILS % (AUTO) 0.7 % (0-6); HEMATOCRIT 35.2 % (42.0-52.0); HEMOGLOBIN 11.3 g/dl (14.0-17.9); LYMPHOCYTES # (AUTO) 0.4 X10'3 (1.1-4.8); LYMPHOCYTES % (AUTO) 3.8 % (21-51); MEAN CORPUSCULAR HEMOGLOBIN 29.7 PG (27.0-31.0); MEAN CORPUSCULAR HGB CONC 32.1 g/dL (33.0-36.5); MEAN CORPUSCULAR VOLUME 92.6 FL (78-98); MEAN PLATELET VOLUME 10.7 FL (7.4-10.4); MONOCYTES # (AUTO) 1.2 X10'3 (0-0.9); MONOCYTES % (AUTO) 10.6 % (2-12); NEUTROPHILS # (AUTO) 9.5 X10'3 (1.8-7.7); NEUTROPHILS % (AUTO) 84.6 % (42-75); PLATELET COUNT 146 X10'3 (140-440); RED CELL DISTRIBUTION WIDTH 16.1 % (11.5-14.5); WHITE BLOOD COUNT 11.2 X10'3 (4.5-11.0)
[2022-01-04] MEDS: vancomycin inj 500 MG in normal saline 100ml IV soln 100 ML IV SCH (04:26)
[2022-01-04 04:51] LABS: ALANINE AMINOTRANSFERASE 22 U/L (12-78); ALBUMIN 2.1 G/DL (3.4-5.0); ALBUMIN/GLOBULIN RATIO 0.4 (1.1-1.5); ALKALINE PHOSPHATASE 143 IU/L (46-116); ANION GAP 10 (8-16); BILIRUBIN,TOTAL 0.7 MG/DL (0.1-1.0); BLOOD UREA NITROGEN 99 MG/DL (7-18); BUN/CREATININE RATIO 28.9 (5.4-32.0); CALCIUM 8.4 MG/DL (8.5-10.1); CHLORIDE 95 MMOL/L (99-107); CREATININE 3.43 MG/DL (0.60-1.10); GLUCOSE 108 MG/DL (70-104); SODIUM 135 MMOL/L (135-145); TOTAL CARBON DIOXIDE 30.2 MMOL/L (24-32); TOTAL PROTEIN 6.8 G/DL (6.4-8.2); VANCOMYCIN,TROUGH 11.6 UG/ML (6.0-14.0); eGFR 18 ML/MIN
[2022-01-04 04:58] LABS: ASPARTATE AMINO TRANSFERASE 23 U/L (10-37); POTASSIUM 4.9 MMOL/L (3.5-5.1)
[2022-01-04 05:02] LABS: TOTAL CELLS COUNTED 100
[2022-01-04 05:04] LABS: ANISOCYTOSIS 1+; PLATELET ESTIMATE NORMAL; POLYCHROMASIA FEW
--- NOTE | 2022-01-04 06:58 | NUR ---
Patient in room PCU 3022. I have received report from Kirsten LOMAS and had the opportunity to ask questions and assume patient care.
[2022-01-04] MEDS: diatr meglu/diatrizoate 30ml oral sol.-(3 dose) bottle PO SCH ×2 (07:18→10:53)
[2022-01-04] MEDS: normal saline 1000ml 1,000 ML IV SCH ×2 (07:19→17:13)
[2022-01-04] MEDS: lisinopril 10 MG tablet PO SCH (08:00)
[2022-01-04] MEDS: carVEDilol 12.5mg tablet PO SCH ×2 (08:00→20:27)
[2022-01-04] MEDS: pantoprazole 40mg Tablet.DR PO SCH (08:38)
[2022-01-04] MEDS: apixaban 5mg tablet PO SCH ×2 (08:39→20:23)
[2022-01-04] MEDS: pyridostigmine br 60mg tablet PO SCH ×3 (08:39→20:22)
[2022-01-04] MEDS: allopurinol 100mg tablet PO SCH (08:39)
[2022-01-04] MEDS: mycophenolate mofetil 250mg capsule PO SCH ×2 (08:41→20:22)
--- NOTE | 2022-01-04 09:26 | NUR ---
WOUND INFECTION EDUCATION PROVIDED BY WOUND CARE 1. Patient instructed to call their primary doctor, or go the ED immediately if any of the following symptoms occur: * Increased pain in wound * Increase in drainage from the wound * Redness in the skin surrounding the wound * Warmth in the skin surrounding the wound * Bleeding from the wound * Temperature of 101 or greater 2. If any of these occur while in the hospital tell a nurse immediately. Addendum: 01/04/22 at 926 by Marcy Leonardo RN Amended: Links added.
--- NOTE | 2022-01-04 09:50 | NUR ---
Per MD Karen bradford to hold coreg and lisinopril
[2022-01-04] MEDS ORDERED: LORazepam 2 mg/ml vial IV ONE (10:40)
[2022-01-04 14:00] LABS: CLARITY,URINE CLEAR (Clear); COLOR,URINE YELLOW (Yellow); GLUCOSE, URINE NEGATIVE (Neg); KETONES,URINE NEGATIVE (Neg); LEUKOCYTE ESTERASE ,URINE NEGATIVE (Neg); NITRITES, URINE NEGATIVE (Neg); OCCULT BLOOD,URINE NEGATIVE (Neg); PROTEIN,URINE NEGATIVE (Neg); UROBILINOGEN,URINE 0.2 E.U/dL (0.2-1.0)
[2022-01-04 14:03] LABS: SODIUM,URINE RANDOM < 15 MEQ/L; TOTAL PROTEIN,URINE RANDOM 32.7 MG/DL
[2022-01-04 14:11] LABS: UA COLLECTION TYPE NON-SPECIFIED
--- NOTE | 2022-01-04 15:44 | NUR ---
1300 mestinon was administered late d/t medication had to be brought by pharmacy.
--- NOTE | 2022-01-04 15:52 | NUR ---
Patient transferred onto a bariatric bed, tolerated well.
--- NOTE | 2022-01-04 18:38 | NUR ---
Orientee documentation: I have reviewed and agree with all interventions, assessments performed and documented by CESILIA Gibbs.
--- NOTE | 2022-01-04 18:50 | NUR ---
Orientee documentation: I have reviewed and agree with all interventions, assessments performed and documented by CESILIA Gibbs.
[2022-01-05] VITALS (7 sets, daily range): BP systolic 94–137; BP diastolic 43–63
[2022-01-05] MEDS: normal saline 1000ml 1,000 ML IV SCH ×3 (03:02→21:05)
[2022-01-05] MEDS: VANCOMYCIN 750MG IV in NS 250 ML IV SCH (04:05)
--- NOTE | 2022-01-05 06:47 | NUR ---
Patient in room PCU 3022. I have received report from CESILIA MATHIS, and had the opportunity to ask questions and assume patient care.
[2022-01-05 07:58] LABS: ALANINE AMINOTRANSFERASE 16 U/L (12-78); ALBUMIN 2.3 G/DL (3.4-5.0); ALBUMIN/GLOBULIN RATIO 0.5 (1.1-1.5); ALKALINE PHOSPHATASE 167 IU/L (46-116); ANION GAP 8 (8-16); ASPARTATE AMINO TRANSFERASE 18 U/L (10-37); BILIRUBIN,TOTAL 0.7 MG/DL (0.1-1.0); BLOOD UREA NITROGEN 102 MG/DL (7-18); BUN/CREATININE RATIO 37.2 (5.4-32.0); CALCIUM 8.6 MG/DL (8.5-10.1); CHLORIDE 99 MMOL/L (99-107); CREATININE 2.74 MG/DL (0.60-1.10); GLUCOSE 109 MG/DL (70-104); MAGNESIUM 3.1 MG/DL (1.5-2.4); PHOSPHORUS 3.7 MG/DL (2.3-4.5); POTASSIUM 4.3 MMOL/L (3.5-5.1); SODIUM 136 MMOL/L (135-145); TOTAL PROTEIN 6.9 G/DL (6.4-8.2); eGFR 23 ML/MIN
[2022-01-05] MEDS: apixaban 5mg tablet PO SCH ×2 (08:44→20:54)
[2022-01-05] MEDS: lisinopril 10 MG tablet PO SCH (08:44)
[2022-01-05] MEDS: carVEDilol 12.5mg tablet PO SCH ×2 (08:44→20:55)
[2022-01-05] MEDS: mycophenolate mofetil 250mg capsule PO SCH ×2 (08:45→20:54)
[2022-01-05] MEDS: pyridostigmine br 60mg tablet PO SCH ×3 (08:45→20:55)
[2022-01-05] MEDS ORDERED: cosyntropin 250mcg inj IV ONE (10:55)
--- NOTE | 2022-01-05 11:16 | NUR ---
PAGED DR. SMITH REGARDING WHY THE LABS WERE CANCELLED BY THE LAB FOR THE KATERIN LEVELS AND WHICH ONES TO ORDER IF NEEDED. PAGER ID: [phone] MESSAGE: [phone]. CELENA GOMEZ. THE LABS ARE ARE SENT OUT TO [facility] FOR PROCESSING. THE LABS AREN'T DONE IN OUR LAB. THE LABS TO ORDER ARE EITHER KATERIN RANDOM OR KATERIN AM. THANK YOU. CHELY LOMAS X [phone] Addendum: 01/05/22 at 1122 by Chely Bernardo RN DR. SMITH CALLED BACK AND STATED THAT HE WOULD LIKE FOR THE LABS TO BE DRAWN AND SENT OUT.
--- NOTE | 2022-01-05 11:17 | NUR ---
PAGE SENT PAGER ID: [phone] MESSAGE: [phone], HOSEA GOMEZ, OUR LAB DOESN'T PERFORM THE COSYNTROPIN TEST. IT WOULD HAVE TO BE SHIPPED OUT TO [facility]. IS IT STILL A GO? THANK YOU, HENRRY [phone]
[2022-01-05] MEDS: pantoprazole 40mg Tablet.DR PO SCH (12:13)
--- NOTE | 2022-01-05 14:09 | NUR ---
PRESSURE ULCER EDUCATION: DEFINITION: A pressure ulcer is an area of skin that breaks down when you stay in one position too long. The constant pressure against the skin reduces the blood flow to that area and the affected tissue dies. CAUSES: "Being bedridden or in a wheelchair "Fragile skin "Having a chronic condition, such as diabetes or vascular disease "Inability to move certain parts of your body without assistance "Older age "Incontinence of urine or stool SYMPTOMS: "A reddened area that DOES NOT turn white when pressed on - this can be the beginning of a pressure ulcer "A blister, deep sore or a crater - these can be advanced pressure ulcers FIRST AID: "Relieve the pressure on this area "Keep the area clean and dry "Call your primary doctor if you see any of the above symptoms "DO NOT massage the area "DO NOT use a donut shaped or ring shaped pillow- these actually interfere with the blood flow and cause complications PREVENTION: "Check for pressure ulcers everyday "Change position at least every two hours to relieve pressure "Use items that help relieve pressure- pillows, sheepskin, foam padding, and powders. "Keep skin clean and dry "Eat healthy well balanced meals "Exercise daily IF YOU SEE ANY OF THESE SYMPTOMS WHILE IN THE HOSPITAL - TELL YOUR NURSE IMMEDIATELY. IF YOU SEE ANY OF THESE SYMPTOMS WHILE AT HOME OR HAVE ANY QUESTIONS OR CONCERNS ABOUT PRESSURE ULCERS - CALL YOUR PRIMARY DOCTOR IMMEDIATELY. Addendum: 01/05/22 at 1409 by Marcy Leonardo RN Amended: Links added.
--- NOTE | 2022-01-05 17:40 | NUR ---
PT HAS BEEN RELUCTANT TO BE REPOSITIONED THROUGHOUT THE DAY. PT WAS EDUCATED ON THE IMPORTANCE OF BEING REPOSITIONED FOR SKIN INTEGRITY, BUT REFUSED.
--- NOTE | 2022-01-05 18:09 | NUR ---
PAGE SENT [phone], HOSEA GOMEZ, "KUNAL" APPEARS ALTERED. NO FACIAL DROOP, AOX1 FROM AOX3. PLEASE ASSESS. SORRY ABOUT THE CHANGE OF SHIFT. HENRRY X [phone]
--- NOTE | 2022-01-05 18:15 | NUR ---
PAGE SENT PAGER ID: [phone] MESSAGE: [phone], HOSEA GOMEZ PT IS ALTERED. BP 94/46. AOX1. THANK YOU, HENRRY Camacho [phone]
[2022-01-05 18:42] LABS: ABG BASE EXCESS 0.3 mmol/L (-2.0-2.0); ABG OXYGEN SATURATION 94.2 % (94-97); ABG PCO2 (T) 60.3 mmHg (35.0-48.0); ABG PO2 (T) 67.4 mmHg (75.0-100.0); ALLEN'S TEST POSITIVE; FCOHb 0.3 % (0.0-3.9); FMetHb 0.4 % (0.0-1.5); FO2Hb 93.5 % (94-97); PATIENT TEMPERATURE 37.2; TOTAL HEMOGLOBIN 12.2 G/dl (14.0-18.0)
--- NOTE | 2022-01-05 18:45 | NUR ---
Patient in room PCU 3022. I have received report from CESILIA Phelan and had the opportunity to ask questions and assume patient care.
--- NOTE | 2022-01-05 18:48 | NUR ---
[place] [id number]
--- NOTE | 2022-01-05 18:49 | NUR ---
THE PT WASN'T ABLE TO ANSWER QUESTIONS AND WAS SOMNOLENT.DAUGHTER WAS CONCERNED, SAYING THAT SHE HAD "NEVER SEEN HIM LIKE THIS". THERE WAS NO FACIAL DROOPING, EVEN SMILE AND TONGUE, EQUAL BILAT STRENGTH. VS: 97.6F,94/46, HR 68, RR 14. STROKE NURSE PAGED. LAST KNOWN "NORMAL" 1500. DR. SMITH NOTIFIED, AND HE ORDERED A CT SCAN, AND ABGs.
--- NOTE | 2022-01-05 18:55 | NUR ---
Problems reprioritized. Patient report given, questions answered & plan of care reviewed with CESILIA BROTHERS.
--- NOTE | 2022-01-05 19:15 | NUR ---
Called for a stroke alert assisted with taking patient to CT. ABG is abnormal Dr. Jones aware and patient to be put on Bypap no neuro consult needed at this time per Dr Jones.
[2022-01-05] MEDS: temazepam 15mg capsule PO PRN (21:12)
[2022-01-06] MEDS: temazepam 15mg capsule PO PRN (01:16)
[2022-01-06 02:00] VITALS: BP 96/46
[2022-01-06] MEDS: VANCOMYCIN 750MG IV in NS 250 ML IV SCH (04:33)
[2022-01-06 06:28] LABS: BASOPHILS % (AUTO) 0.2 % (0-1); EOSINOPHILS # (AUTO) 0.1 X10'3 (0-0.9); EOSINOPHILS % (AUTO) 1.2 % (0-6); HEMATOCRIT 31.9 % (42.0-52.0); HEMOGLOBIN 10.5 g/dl (14.0-17.9); LYMPHOCYTES # (AUTO) 0.7 X10'3 (1.1-4.8); MEAN CORPUSCULAR HEMOGLOBIN 30.2 PG (27.0-31.0); MEAN CORPUSCULAR HGB CONC 32.8 g/dL (33.0-36.5); MEAN CORPUSCULAR VOLUME 92.1 FL (78-98); MEAN PLATELET VOLUME 9.4 FL (7.4-10.4); MONOCYTES % (AUTO) 13.3 % (2-12); NEUTROPHILS # (AUTO) 5.9 X10'3 (1.8-7.7); NEUTROPHILS % (AUTO) 76.3 % (42-75); PLATELET COUNT 163 X10'3 (140-440); RED BLOOD COUNT 3.47 X10'6 (4.70-6.10); RED CELL DISTRIBUTION WIDTH 16.2 % (11.5-14.5); WHITE BLOOD COUNT 7.7 X10'3 (4.5-11.0)
[2022-01-06 07:00] VITALS: BP 117/56
--- NOTE | 2022-01-06 07:03 | NUR ---
Problems reprioritized. Patient report given to CESILIA Wyatt, questions answered & plan of care reviewed with .
[2022-01-06 07:43] LABS: ALANINE AMINOTRANSFERASE 14 U/L (12-78); ALBUMIN/GLOBULIN RATIO 0.5 (1.1-1.5); ALKALINE PHOSPHATASE 157 IU/L (46-116); ANION GAP 8 (8-16); ASPARTATE AMINO TRANSFERASE 17 U/L (10-37); BILIRUBIN,TOTAL 0.7 MG/DL (0.1-1.0); BLOOD UREA NITROGEN 98 MG/DL (7-18); BUN/CREATININE RATIO 48.8 (5.4-32.0); CALCIUM 8.4 MG/DL (8.5-10.1); CHLORIDE 105 MMOL/L (99-107); CREATININE 2.01 MG/DL (0.60-1.10); GLUCOSE 89 MG/DL (70-104); MAGNESIUM 3.1 MG/DL (1.5-2.4); PHOSPHORUS 3.3 MG/DL (2.3-4.5); POTASSIUM 4.1 MMOL/L (3.5-5.1); SODIUM 139 MMOL/L (135-145); TOTAL CARBON DIOXIDE 26.3 MMOL/L (24-32); TOTAL PROTEIN 6.2 G/DL (6.4-8.2); eGFR 33 ML/MIN
[2022-01-06] MEDS: allopurinol 100mg tablet PO SCH (08:41)
[2022-01-06] MEDS: lisinopril 10 MG tablet PO SCH (08:41)
[2022-01-06] MEDS: carVEDilol 12.5mg tablet PO SCH (08:41)
[2022-01-06] MEDS: apixaban 5mg tablet PO SCH ×2 (08:41→22:19)
[2022-01-06] MEDS: pantoprazole 40mg Tablet.DR PO SCH (08:41)
[2022-01-06] MEDS: mycophenolate mofetil 250mg capsule PO SCH ×2 (08:42→22:19)
[2022-01-06] MEDS: pyridostigmine br 60mg tablet PO SCH ×3 (08:42→22:19)
[2022-01-06] MEDS: normal saline 1000ml 1,000 ML IV SCH ×2 (08:44→22:20)
[2022-01-06 09:04] LABS: ABG BASE EXCESS -1.5 mmol/L (-2.0-2.0); ABG HCO3 25.3 mmol/L (22.0-26.0); ABG OXYGEN SATURATION 89.3 % (94-97); ABG PCO2 (T) 51.8 mmHg (35.0-48.0); ABG PO2 (T) 54.7 mmHg (75.0-100.0); ALLEN'S TEST POSITIVE; FCOHb 0.1 % (0.0-3.9); FMetHb 0.3 % (0.0-1.5); FO2Hb 88.9 % (94-97); TOTAL HEMOGLOBIN 12.1 G/dl (14.0-18.0)
[2022-01-06 11:00] VITALS: BP 108/54
--- NOTE | 2022-01-06 13:26 | NUR ---
Initial: Pt admit DX sepsis, L lower leg cellulitis/lymphedema, ALEJANDRO requiring volume, CHF exacerbation, hypotension, and myasthenia gravis per EMR. Pt placed on renal diet this AM from prior Na-restricted diet PO steadily improving from initial 0-25% to ~47% avg meals past two days and 100% breakfast this AM per EMR. Partially meeting estimated needs; given substantial improvement in breakfast PO this AM and DX RD recommends vanilla Ensure High Protein TIDMW DO notified. LBM 01/05. Will monitor for further nutrition intervention needs this admit. Rec: 1. liberalize to heart healthy diet per MD discretion; encourage PO 2. vanilla Ensure High Protein TIDWM; pending physician verification in EMR 3. routine bowel care 4. weekly wts Addendum: 01/06/22 at [address] Amended: Links added.
[2022-01-06 15:00] VITALS: BP 105/43
[2022-01-06 18:00] VITALS: BP 120/59
[2022-01-06] MEDS ORDERED: lactose-reduced food (Ensure High Protein) 237ml bottle PO SCH (18:00)
--- NOTE | 2022-01-06 18:42 | NUR ---
report given to Javon LOMAS
[2022-01-06 22:00] VITALS: BP 135/52
[2022-01-06] MEDS: carVEDilol 3.125mg tablet PO SCH (22:20)
[2022-01-07 02:00] VITALS: BP 104/42
[2022-01-07] MEDS: normal saline 1000ml 1,000 ML IV SCH (05:02)
[2022-01-07] MEDS: VANCOMYCIN 750MG IV in NS 250 ML IV SCH (05:10)
--- NOTE | 2022-01-07 06:16 | NUR ---
Patient in room PCU 3022. I have received report from Ismael LOMAS and had the opportunity to ask questions and assume patient care..Patient is resting in bed in no acute distress.
[2022-01-07 07:00] VITALS: BP 126/82
[2022-01-07] MEDS: lisinopril 10 MG tablet PO SCH (07:38)
[2022-01-07] MEDS: mycophenolate mofetil 250mg capsule PO SCH (07:39)
[2022-01-07] MEDS: pantoprazole 40mg Tablet.DR PO SCH (07:39)
[2022-01-07] MEDS: apixaban 5mg tablet PO SCH (07:39)
[2022-01-07] MEDS: pyridostigmine br 60mg tablet PO SCH ×2 (07:39→13:00)
[2022-01-07] MEDS: carVEDilol 3.125mg tablet PO SCH (07:39)
[2022-01-07 08:18] LABS: ALBUMIN 2.1 G/DL (3.4-5.0); ANION GAP 7 (8-16); BLOOD UREA NITROGEN 85 MG/DL (7-18); BUN/CREATININE RATIO 52.8 (5.4-32.0); CALCIUM 8.5 MG/DL (8.5-10.1); CHLORIDE 105 MMOL/L (99-107); CREATININE 1.61 MG/DL (0.60-1.10); GLUCOSE 121 MG/DL (70-104); MAGNESIUM 3.1 MG/DL (1.5-2.4); PHOSPHORUS 4.2 MG/DL (2.3-4.5); POTASSIUM 4.6 MMOL/L (3.5-5.1); SODIUM 141 MMOL/L (135-145); TOTAL CARBON DIOXIDE 29.3 MMOL/L (24-32); eGFR 43 ML/MIN
[2022-01-07 08:45] LABS: EOSINOPHILS # (AUTO) 0.2 X10'3 (0-0.9); LYMPHOCYTES # (AUTO) 0.7 X10'3 (1.1-4.8); MEAN PLATELET VOLUME 8.9 FL (7.4-10.4); MONOCYTES # (AUTO) 1.2 X10'3 (0-0.9); PLATELET COUNT 219 X10'3 (140-440)
[2022-01-07 08:47] LABS: BASOPHILS % (AUTO) 0.3 % (0-1); EOSINOPHILS % (AUTO) 2.8 % (0-6); HEMATOCRIT 34.9 % (42.0-52.0); HEMOGLOBIN 11.2 g/dl (14.0-17.9); LYMPHOCYTES % (AUTO) 8.7 % (21-51); MEAN CORPUSCULAR HEMOGLOBIN 29.9 PG (27.0-31.0); MEAN CORPUSCULAR VOLUME 93.5 FL (78-98); MONOCYTES % (AUTO) 15.6 % (2-12); NEUTROPHILS # (AUTO) 5.6 X10'3 (1.8-7.7); NEUTROPHILS % (AUTO) 72.6 % (42-75); RED BLOOD COUNT 3.73 X10'6 (4.70-6.10); RED CELL DISTRIBUTION WIDTH 15.8 % (11.5-14.5); WHITE BLOOD COUNT 7.7 X10'3 (4.5-11.0)
[2022-01-07] MEDS ORDERED: LINE600T11 PO (09:33)
[2022-01-07] MEDS ORDERED: COR3.125T PO (09:33)
--- NOTE | 2022-01-07 11:27 | NUR ---
home meds stored in pharmacy were given to daughters to take home.
[2022-01-07 12:36] LABS: ABG BASE EXCESS 0.3 mmol/L (-2.0-2.0); ABG HCO3 28.9 mmol/L (22.0-26.0); ABG OXYGEN SATURATION 96.6 % (94-97); ABG PCO2 (T) 66.9 mmHg (35.0-48.0); ABG PO2 (T) 83.3 mmHg (75.0-100.0); ALLEN'S TEST POSITIVE; FCOHb 0.4 % (0.0-3.9); FLOW 2 L/min; FMetHb 0.4 % (0.0-1.5); FO2Hb 95.8 % (94-97); TOTAL HEMOGLOBIN 12.3 G/dl (14.0-18.0)
[2022-01-07 15:00] VITALS: BP 117/60
--- NOTE | 2022-01-07 15:52 | NUR ---
report called to Adriana GARNER at [facility]. Daughters given clothes, wallet, and medications. They also have patient's glasses and phone and phone clam bed worker to take to [facility] with him.
[2022-01-08] MEDS ORDERED: VANCOMYCIN LEVEL IV ONE (03:30)
== END 2022-01-07 16:50 | DRG 871 ==
LOC: ER 22:58 → ED HOLD 01-01 02:05 → PCU 3S 01-01 12:59
PROVIDERS: ADMIT Family Medicine; ATTEND Internal Medicine
PROC: CB121ZZ Planar Nuclear Medicine Imaging of Lungs and Bronchi using Technetium 99m (Tc-99m) (ICD-10-PCS; 2022-01-02)
PROC: 5A09357 Assistance with Respiratory Ventilation, Less than 24 Consecutive Hours, Continuous Positive Airway Pressure (ICD-10-PCS; principal; 2022-01-05)
DX: A41.9 Sepsis, unspecified organism (principal); N17.0 Acute kidney failure with tubular necrosis; L03.116 Cellulitis of left lower limb; I13.0 Hypertensive heart and chronic kidney disease with heart failure and stage 1 through stage 4 chronic kidney disease, or unspecified chronic kidney disease; Z68.44 Body mass index [BMI] 60.0-69.9, adult; I48.20 Chronic atrial fibrillation, unspecified; G93.40 Encephalopathy, unspecified; I50.22 Chronic systolic (congestive) heart failure; E66.01 Morbid (severe) obesity due to excess calories; E78.00 Pure hypercholesterolemia, unspecified; E86.0 Dehydration; E86.1 Hypovolemia; G47.33 Obstructive sleep apnea (adult) (pediatric); G70.00 Myasthenia gravis without (acute) exacerbation; I27.20 Pulmonary hypertension, unspecified; I34.0 Nonrheumatic mitral (valve) insufficiency; I49.5 Sick sinus syndrome; M10.9 Gout, unspecified; Z20.822 Contact with and (suspected) exposure to COVID-19; D63.8 Anemia in other chronic diseases classified elsewhere; M25.551 Pain in right hip; I95.9 Hypotension, unspecified; I89.0 Lymphedema, not elsewhere classified; L30.9 Dermatitis, unspecified; N18.9 Chronic kidney disease, unspecified; Z79.01 Long term (current) use of anticoagulants; Z79.899 Other long term (current) drug therapy; Z80.0 Family history of malignant neoplasm of digestive organs; Z82.49 Family history of ischemic heart disease and other diseases of the circulatory system; Z83.3 Family history of diabetes mellitus; Z86.73 Personal history of transient ischemic attack (TIA), and cerebral infarction without residual deficits; Z88.5 Allergy status to narcotic agent
CPT/HCPCS: 36415; 36600; 70450; 71045; 73502; 73590; 74176; 76770; 78582; 80048; 80053; 80061; 80202; 81003; 82043; 82533; 82550; 82570; 82803; 83036; 83605; 83690; 83735; 83880; 84100; 84145; 84156; 84300; 84443; 84484; 85007; 85008; 85018; 85025; 85379; 85610; 85730; 87040; 87070; 87075; 87077; 87081; 87186; 87811; 93005; 93306; 93970; 94660; 94760; 97110; 97162; 97530; 99285; A4349; A4649; A6154; A6213; A6250; A9539; A9540; G0378; J0696; J1250; J1940; J2060; J2405; J2543; J3370; J3490; J7030; J7040; J7050; J7120; J7517; Q9963

== ENCOUNTER 2023-02-12 11:57 | Emergency (ER) | payer MEDICARE ==
[~2023-02-12] VITALS: Ht 180.3 cm; Wt 147.7 kg
[~2023-02-12 11:57] MED LIST changes: -ALLO100T PO; +ALLO300T8 PO; -CARV12.5 PO; +COR3.125T PO; -HYDR25TA5 PO; +LINE600T11 PO; -MV-M1TAB32; -NITR0.4T51 SL; -POT25TAB5 PO; +PYRI60TA PO; -QUIN20TA39 PO; -TORS100T15 PO
[2023-02-12 12:09] VITALS: BP 130/103; PULSE 60; RESP 18; TEMP 97.8; O2SAT 100
[2023-02-12 13:08] LABS: BASOPHILS # (AUTO) 0.1 X10'3 (0-0.2); BASOPHILS % (AUTO) 1.1 % (0-1); EOSINOPHILS # (AUTO) 0.1 X10'3 (0-0.9); EOSINOPHILS % (AUTO) 1.6 % (0-6); HEMATOCRIT 28.1 % (42.0-52.0); HEMOGLOBIN 8.9 g/dl (14.0-17.9); LYMPHOCYTES # (AUTO) 0.8 X10'3 (1.1-4.8); LYMPHOCYTES % (AUTO) 15.1 % (21-51); MEAN CORPUSCULAR HEMOGLOBIN 26.8 PG (27.0-31.0); MEAN CORPUSCULAR HGB CONC 31.7 g/dL (33.0-36.5); MEAN CORPUSCULAR VOLUME 84.4 FL (78-98); MEAN PLATELET VOLUME 9.6 FL (7.4-10.4); MONOCYTES # (AUTO) 0.4 X10'3 (0-0.9); MONOCYTES % (AUTO) 7.7 % (2-12); NEUTROPHILS # (AUTO) 4.2 X10'3 (1.8-7.7); NEUTROPHILS % (AUTO) 74.5 % (42-75); PLATELET COUNT 193 X10'3 (140-440); RED BLOOD COUNT 3.32 X10'6 (4.70-6.10); RED CELL DISTRIBUTION WIDTH 18.6 % (11.5-14.5); WHITE BLOOD COUNT 5.6 X10'3 (4.5-11.0)
[2023-02-12 13:11] LABS: ALANINE AMINOTRANSFERASE 17 U/L (12-78); ALBUMIN 3.4 G/DL (3.4-5.0); ALKALINE PHOSPHATASE 49 IU/L (46-116); ANION GAP 10 (8-16); ASPARTATE AMINO TRANSFERASE 17 U/L (10-37); BLOOD UREA NITROGEN 102 MG/DL (7-18); BUN/CREATININE RATIO 64.2 (10.0-20.0); CALCIUM 9.2 MG/DL (8.5-10.1); CHLORIDE 101 MMOL/L (99-107); CREATININE 1.59 MG/DL (0.60-1.10); GLUCOSE 123 MG/DL (70-104); LIPASE 164 U/L (73-393); POTASSIUM 4.1 MMOL/L (3.5-5.1); SODIUM 139 MMOL/L (135-145); TOTAL CARBON DIOXIDE 27.9 MMOL/L (24-32); TOTAL PROTEIN 6.9 G/DL (6.4-8.2); eCRCL 45 ML/MIN; eGFR 43 ML/MIN
[2023-02-12 13:22] LABS: ANISOCYTOSIS 2+; MICROCYTOSIS 1+; PLATELET ESTIMATE NORMAL; POIKILOCYTOSIS FEW; POLYCHROMASIA FEW
[2023-02-12] MEDS ORDERED: PANT-47 PO ×2 (15:42)
[2023-02-12] MEDS ORDERED: PANT40TA54 PO ×2 (16:04)
[2023-02-13] MEDS ORDERED: pantoprazole 40mg Tablet.DR PO ONE (07:30)
[2023-02-15] MEDS ORDERED: MYCO250C PO (10:21)
[2023-02-15] MEDS ORDERED: ALLO300T8 PO (10:21)
[2023-02-15] MEDS ORDERED: METO25TA6 PO (10:21)
[2023-02-15] MEDS ORDERED: HYDR25TA4 PO (10:21)
[2023-02-15] MEDS ORDERED: LISI5TAB22 PO (10:21)
[2023-02-15] MEDS ORDERED: PYRI60TA PO (10:21)
[2023-02-15] MEDS ORDERED: TORS100T15 PO (10:21)
[2023-02-15] MEDS ORDERED: PANT20TA18 PO (10:21)
[2023-02-15] MEDS ORDERED: APIX5TAB3 PO (10:21)
== END 2023-02-12 16:11 | disposition home or self-care (01) ==
LOC: ER 11:58
DX: D64.9 Anemia, unspecified (principal); K62.5 Hemorrhage of anus and rectum; E78.00 Pure hypercholesterolemia, unspecified; I10 Essential (primary) hypertension; Z88.5 Allergy status to narcotic agent; Z79.899 Other long term (current) drug therapy
CPT/HCPCS: 36415; 74018; 80053; 83690; 85008; 85025; 99284

== ENCOUNTER 2023-05-28 13:00 | Inpatient (IN) | payer MEDICARE ==
[~2023-05-28] VITALS: Ht 180.3 cm; Wt 156.8 kg
[~2023-05-28 13:00] MED LIST changes: -COR3.125T PO; +HYDR25TA4 PO; -LINE600T11 PO; +LISI5TAB22 PO; +METO25TA6 PO; +PANT40TA54 PO; +TORS100T15 PO
[2023-05-28 13:45] LABS: BASOPHILS % (AUTO) 0.1 % (0-1); EOSINOPHILS % (AUTO) 0.2 % (0-6); HEMATOCRIT 26.3 % (42.0-52.0); HEMOGLOBIN 8.2 g/dl (14.0-17.9); LYMPHOCYTES # (AUTO) 1.2 X10'3 (1.1-4.8); LYMPHOCYTES % (AUTO) 7.4 % (21-51); MEAN CORPUSCULAR HEMOGLOBIN 22.4 PG (27.0-31.0); MEAN CORPUSCULAR HGB CONC 31.2 g/dL (33.0-36.5); MEAN CORPUSCULAR VOLUME 71.8 FL (78-98); MONOCYTES # (AUTO) 1.3 X10'3 (0-0.9); NEUTROPHILS # (AUTO) 13.5 X10'3 (1.8-7.7); NEUTROPHILS % (AUTO) 84.3 % (42-75); PLATELET COUNT 232 X10'3 (140-440); RED BLOOD COUNT 3.66 X10'6 (4.70-6.10); RED CELL DISTRIBUTION WIDTH 20.3 % (11.5-14.5)
[2023-05-28 14:08] LABS: ALANINE AMINOTRANSFERASE 17 U/L (12-78); ALBUMIN 2.7 G/DL (3.4-5.0); ALBUMIN/GLOBULIN RATIO 0.6 (1.1-1.5); ALKALINE PHOSPHATASE 152 IU/L (46-116); ANION GAP 9 (8-16); ASPARTATE AMINO TRANSFERASE 24 U/L (10-37); BILIRUBIN,TOTAL 1.4 MG/DL (0.1-1.0); BLOOD UREA NITROGEN 108 MG/DL (7-18); BUN/CREATININE RATIO 41.7 (10.0-20.0); CALCIUM 9.3 MG/DL (8.5-10.1); CHLORIDE 93 MMOL/L (99-107); CREATININE 2.59 MG/DL (0.60-1.10); GLUCOSE 157 MG/DL (70-104); PRO BRAIN NATRIURETIC PEPTIDE 15655 PG/ML (0-125); SODIUM 132 MMOL/L (135-145); TOTAL CARBON DIOXIDE 29.8 MMOL/L (24-32); TOTAL PROTEIN 7.1 G/DL (6.4-8.2); eCRCL 28 ML/MIN; eGFR 25 ML/MIN
[2023-05-28 14:27] LABS: PLATELET ESTIMATE NORMAL
[2023-05-28 14:28] LABS: ANISOCYTOSIS 3+; HYPOCHROMASIA 1+; MICROCYTOSIS 1+; POLYCHROMASIA 1+; TARGET CELLS 1+
[2023-05-28] MEDS ORDERED: piperacillin/tazo 3.375gm/50ml 50 ML IV ONE (14:55)
[2023-05-28] MEDS ORDERED: POTASSIUM BICARB 20meq eff tab 20 MEQ TABLET.EFF PO ONE (14:55)
[2023-05-28] MEDS ORDERED: vancomycin/NS 1 GM ADD-VANTAGE 250 ML IV ONE (14:55)
[2023-05-28] MEDS ORDERED: magnesium 2GM in 50ml NS 50 ML IV PRN (15:40)
[2023-05-28] MEDS ORDERED: magnesium 4gm in 100ml NS 100 ML IV PRN (15:40)
[2023-05-28] MEDS ORDERED: magnesium Cl slow-release 64mg tablet PO PRN (15:40)
[2023-05-28] MEDS ORDERED: potassium Cl 20 mEq SR tablet PO PRN ×2 (15:40)
[2023-05-28] MEDS ORDERED: acetaminophen 325mg tablet PO PRN (15:40)
[2023-05-28] MEDS ORDERED: ondansetron/PF 4mg/2ml inj IV PRN (15:40)
[2023-05-28] MEDS ORDERED: potassium Cl 40MEQ/1/2NS 520ml 520 ML IV PRN (15:40)
[2023-05-28] MEDS: acetaminophen 325mg tablet PO SCH (16:04)
[2023-05-28 17:12] LABS: C-REACTIVE PROTEIN 20.78 MG/DL (0.0-0.5); LACTATE DEHYDROGENASE 144 U/L (85-227)
[2023-05-28] MEDS ORDERED: DOCU-171 PO (17:25)
[2023-05-28] MEDS: potassium Cl 40MEQ/1/2NS 520ml 520 ML IV SCH ×2 (17:25→22:02)
[2023-05-28] MEDS: doxycycline inj 100 MG in normal saline 100ml IV soln 100 ML IV SCH ×2 (18:40→22:04)
[2023-05-28] MEDS ORDERED: normal saline 1000ML IV soln IVB ONE (19:30)
[2023-05-28] MEDS ORDERED: heparin, porcine 5000 units/ml vial SQ SCH (20:00)
[2023-05-28] MEDS: pantoprazole 40mg Tablet.DR PO SCH (20:05)
[2023-05-28] MEDS: apixaban 5mg tablet PO SCH (20:05)
[2023-05-28] MEDS: allopurinol 300 MG tablet PO SCH (20:05)
[2023-05-28 20:39] LABS: % IRON SATURATION 3 % (11-46); IRON 9 UG/DL (53-167); TOTAL IRON BINDING CAPACITY 311 UG/DL (259-388)
[2023-05-28 20:53] LABS: FERRITIN 86 NG/ML (26-388)
[2023-05-28 20:55] LABS: BILIRUBIN,URINE NEGATIVE (Neg); CLARITY,URINE CLEAR (Clear); COLOR,URINE YELLOW (Yellow); GLUCOSE, URINE NEGATIVE (Neg); KETONES,URINE NEGATIVE (Neg); LEUKOCYTE ESTERASE ,URINE NEGATIVE (Neg); NITRITES, URINE NEGATIVE (Neg); OCCULT BLOOD,URINE NEGATIVE (Neg); PH,URINE 5.5 (4.8-8.0); PROTEIN,URINE NEGATIVE (Neg); UROBILINOGEN,URINE 0.2 E.U/dL (0.2-1.0)
[2023-05-28 20:56] LABS: UA COLLECTION TYPE CLN CATCH MIDSTREAM
[2023-05-28] MEDS: pyridostigmine br 60mg tablet PO SCH (21:29)
[2023-05-28] MEDS: mycophenolate mofetil 250mg capsule PO SCH (21:31)
[2023-05-29] VITALS (9 sets, daily range): BP systolic 97–114; BP diastolic 50–65; PULSE 62–82; RESP 15–29; TEMP 97.5–99; O2SAT 93–97
[2023-05-29 06:47] LABS: BASOPHILS % (AUTO) 0.2 % (0-1); EOSINOPHILS # (AUTO) 0.3 X10'3 (0-0.9); EOSINOPHILS % (AUTO) 2.2 % (0-6); HEMATOCRIT 23.9 % (42.0-52.0); HEMOGLOBIN 7.6 g/dl (14.0-17.9); LYMPHOCYTES # (AUTO) 1.2 X10'3 (1.1-4.8); MEAN CORPUSCULAR HEMOGLOBIN 22.7 PG (27.0-31.0); MEAN CORPUSCULAR HGB CONC 31.7 g/dL (33.0-36.5); MEAN CORPUSCULAR VOLUME 71.7 FL (78-98); MEAN PLATELET VOLUME 8.8 FL (7.4-10.4); MONOCYTES # (AUTO) 1.4 X10'3 (0-0.9); MONOCYTES % (AUTO) 9.3 % (2-12); NEUTROPHILS # (AUTO) 11.7 X10'3 (1.8-7.7); NEUTROPHILS % (AUTO) 80.3 % (42-75); PLATELET COUNT 253 X10'3 (140-440); RED BLOOD COUNT 3.33 X10'6 (4.70-6.10); RED CELL DISTRIBUTION WIDTH 19.7 % (11.5-14.5); WHITE BLOOD COUNT 14.5 X10'3 (4.5-11.0)
[2023-05-29 06:52] LABS: ALANINE AMINOTRANSFERASE 20 U/L (12-78); ALBUMIN 2.3 G/DL (3.4-5.0); ALBUMIN/GLOBULIN RATIO 0.5 (1.1-1.5); ALKALINE PHOSPHATASE 137 IU/L (46-116); ANION GAP 7 (8-16); ASPARTATE AMINO TRANSFERASE 20 U/L (10-37); BILIRUBIN,TOTAL 1.2 MG/DL (0.1-1.0); BLOOD UREA NITROGEN 101 MG/DL (7-18); BUN/CREATININE RATIO 47.4 (10.0-20.0); CALCIUM 8.8 MG/DL (8.5-10.1); CHLORIDE 96 MMOL/L (99-107); CREATININE 2.13 MG/DL (0.60-1.10); GLUCOSE 104 MG/DL (70-104); POTASSIUM 3.5 MMOL/L (3.5-5.1); SODIUM 132 MMOL/L (135-145); TOTAL CARBON DIOXIDE 28.6 MMOL/L (24-32); TOTAL PROTEIN 6.5 G/DL (6.4-8.2); eCRCL 34 ML/MIN; eGFR 31 ML/MIN
[2023-05-29] MEDS: doxycycline inj 100 MG in normal saline 100ml IV soln 100 ML IV SCH ×2 (07:56→19:38)
[2023-05-29] MEDS: allopurinol 300 MG tablet PO SCH (08:02)
[2023-05-29] MEDS: furosemide 40mg/4ml inj IV SCH (08:02)
[2023-05-29] MEDS: pyridostigmine br 60mg tablet PO SCH ×3 (08:03→20:00)
[2023-05-29] MEDS: pantoprazole 40mg Tablet.DR PO SCH ×2 (08:03→17:57)
[2023-05-29] MEDS: apixaban 5mg tablet PO SCH ×2 (08:03→19:38)
[2023-05-29] MEDS: lisinopril 5mg tablet PO SCH (08:03)
[2023-05-29] MEDS: acetaminophen 325mg tablet PO SCH ×4 (08:04→23:40)
[2023-05-29] MEDS: mycophenolate mofetil 250mg capsule PO SCH ×2 (10:05→19:38)
[2023-05-29] MEDS ORDERED: allopurinol 100mg tablet PO SCH (16:39)
[2023-05-30 02:26] VITALS: BP 118/77; PULSE 61; RESP 17; TEMP 98.9; O2SAT 95
[2023-05-30 06:00] VITALS: BP 97/49; PULSE 82; RESP 21; TEMP 98.6; O2SAT 96
[2023-05-30 07:32] LABS: BASOPHILS % (AUTO) 0.3 % (0-1); EOSINOPHILS # (AUTO) 0.4 X10'3 (0-0.9); HEMATOCRIT 25.2 % (42.0-52.0); HEMOGLOBIN 7.8 g/dl (14.0-17.9); LYMPHOCYTES # (AUTO) 1.5 X10'3 (1.1-4.8); LYMPHOCYTES % (AUTO) 12.2 % (21-51); MEAN CORPUSCULAR HEMOGLOBIN 22.5 PG (27.0-31.0); MEAN CORPUSCULAR HGB CONC 31.1 g/dL (33.0-36.5); MEAN CORPUSCULAR VOLUME 72.3 FL (78-98); MEAN PLATELET VOLUME 8.5 FL (7.4-10.4); MONOCYTES # (AUTO) 0.9 X10'3 (0-0.9); MONOCYTES % (AUTO) 7.5 % (2-12); NEUTROPHILS # (AUTO) 9.3 X10'3 (1.8-7.7); PLATELET COUNT 339 X10'3 (140-440); RED BLOOD COUNT 3.48 X10'6 (4.70-6.10); RED CELL DISTRIBUTION WIDTH 20.1 % (11.5-14.5); WHITE BLOOD COUNT 12.1 X10'3 (4.5-11.0)
[2023-05-30 07:59] LABS: ALANINE AMINOTRANSFERASE 20 U/L (12-78); ALBUMIN 2.4 G/DL (3.4-5.0); ALBUMIN/GLOBULIN RATIO 0.6 (1.1-1.5); ALKALINE PHOSPHATASE 142 IU/L (46-116); ANION GAP 6 (8-16); ASPARTATE AMINO TRANSFERASE 22 U/L (10-37); BLOOD UREA NITROGEN 88 MG/DL (7-18); BUN/CREATININE RATIO 46.1 (10.0-20.0); CALCIUM 9.1 MG/DL (8.5-10.1); CHLORIDE 98 MMOL/L (99-107); CREATININE 1.91 MG/DL (0.60-1.10); GLUCOSE 101 MG/DL (70-104); POTASSIUM 3.6 MMOL/L (3.5-5.1); SODIUM 135 MMOL/L (135-145); TOTAL CARBON DIOXIDE 31.3 MMOL/L (24-32); TOTAL PROTEIN 6.7 G/DL (6.4-8.2); eCRCL 38 ML/MIN; eGFR 35 ML/MIN
[2023-05-30] MEDS: lisinopril 5mg tablet PO SCH (08:00)
[2023-05-30] MEDS: apixaban 5mg tablet PO SCH (08:16)
[2023-05-30] MEDS: pyridostigmine br 60mg tablet PO SCH ×2 (08:17→15:10)
[2023-05-30] MEDS: pantoprazole 40mg Tablet.DR PO SCH (08:18)
[2023-05-30] MEDS: acetaminophen 325mg tablet PO SCH (08:20)
[2023-05-30] MEDS: mycophenolate mofetil 250mg capsule PO SCH (08:21)
[2023-05-30] MEDS: doxycycline inj 100 MG in normal saline 100ml IV soln 100 ML IV SCH (08:22)
[2023-05-30] MEDS: furosemide 40mg/4ml inj IV SCH (08:22)
[2023-05-30 09:16] LABS: PLATELET ESTIMATE NORMAL
[2023-05-30 09:17] LABS: ANISOCYTOSIS 3+; MICROCYTOSIS 1+; POIKILOCYTOSIS 2+
[2023-05-30 09:18] LABS: ELLIPTOCYTES 1+; HYPOCHROMASIA 2+
[2023-05-30] MEDS ORDERED: DOXY-1 PO (10:20)
[2023-05-30 11:00] VITALS: BP 149/61; PULSE 75; RESP 22; TEMP 97.9; O2SAT 91
[2023-05-30] MEDS ORDERED: FERR324T4 PO (11:06)
[2023-05-30] MEDS ORDERED: FOLI0.4T6 PO (11:06)
[2023-05-30] MEDS ORDERED: HYDROcodone/acetaminophen 5mg/325mg tablet PO ONE (14:50)
[2023-05-30] MEDS ORDERED: ACET650T58 PO (14:55)
== END 2023-05-30 16:35 | disposition home health service (06) | DRG 871 ==
LOC: ER 13:01 → ED HOLD 15:42 → PCU 3S 05-29 00:24
PROVIDERS: ADMIT Internal Medicine; ATTEND Internal Medicine
DX: A41.9 Sepsis, unspecified organism (principal); I50.23 Acute on chronic systolic (congestive) heart failure; N17.0 Acute kidney failure with tubular necrosis; L03.116 Cellulitis of left lower limb; I13.0 Hypertensive heart and chronic kidney disease with heart failure and stage 1 through stage 4 chronic kidney disease, or unspecified chronic kidney disease; Z68.41 Body mass index [BMI] 40.0-44.9, adult; N18.4 Chronic kidney disease, stage 4 (severe); G47.33 Obstructive sleep apnea (adult) (pediatric); I89.0 Lymphedema, not elsewhere classified; E66.01 Morbid (severe) obesity due to excess calories; I49.5 Sick sinus syndrome; F10.90 Alcohol use, unspecified, uncomplicated; G70.00 Myasthenia gravis without (acute) exacerbation; D64.9 Anemia, unspecified; K27.9 Peptic ulcer, site unspecified, unspecified as acute or chronic, without hemorrhage or perforation; Z20.822 Contact with and (suspected) exposure to COVID-19; M10.9 Gout, unspecified; E78.00 Pure hypercholesterolemia, unspecified; E87.6 Hypokalemia; I48.91 Unspecified atrial fibrillation; Z80.0 Family history of malignant neoplasm of digestive organs; Z83.3 Family history of diabetes mellitus; Z79.899 Other long term (current) drug therapy
CPT/HCPCS: 36415; 71045; 80053; 81003; 82728; 83540; 83550; 83605; 83615; 83735; 83880; 84145; 84156; 84484; 85008; 85025; 86140; 87040; 87081; 87502; 87503; 87811; 93970; 96365; 96368; 97161; 97530; 99291; A6212; A6213; A6250; A6446; A6449; G0378; J1644; J1940; J2543; J3370; J3480; J3490; J7030; J7040; J7517